=== PATIENT | female | born 2000 | race African-American/Black ===

== ENCOUNTER 2023-03-07 18:12 | Emergency (ER) | payer OTHER ==
[~2023-03-07] VITALS: Ht 162.6 cm; Wt 66.4 kg
[2023-03-07 18:13] VITALS: BP 126/80
== END 2023-03-07 22:38 | disposition home or self-care (01) ==
LOC: M ED 18:12
DX: S67.196A Crushing injury of right little finger, initial encounter (principal); W23.1XXA Caught, crushed, jammed, or pinched between stationary objects, initial encounter; Y99.1 Military activity